=== PATIENT | male | born 1950 | race Caucasian/White ===

== ENCOUNTER → 2017-04-26 | Outpatient (CLI) | payer MEDICARE, OTHER ==
[~2017-04-26] MED LIST: DEXAMETHASONE 10 MG/ML (DECADRON) 1 ML VIAL ONE
[2017-04-26 14:35] VITALS: BP 144/77
[2017-04-26 15:02] VITALS: BP 157/88
--- NOTE | 2017-05-01 12:20 | OPERATIVE REPORT ---
DATE OF SERVICE: 04/26/2017 PROCEDURE: Fluoroscopic guided cervical epidural steroid injection. DESCRIPTION OF PROCEDURE: After obtaining informed consent from the patient, the patient's chart was then reviewed. The patient was then brought to the procedure room, placed in prone position. Timeout was performed. The back was prepped with anesthetic solution and under fluoroscopic guidance, the patient's C7-T1 area was then identified. The area over the right pedicle were identified over T1. Using a 3-1/2 spinal needle then area of skin over the pedicle was anesthetized down to the pedicle and then advanced up to the interspinous space between C7 and T1. This needle was then withdrawn anesthetizing the area again. The Touhy was then directed under fluoroscopy down following the same tract. Loss of resistance syringe was placed and under fluoro guidance epidural space was identified. Syringe was replaced with syringe containing radiopaque dye confirmation of epidural access was obtained with the dye under fluoroscopy after negative aspiration. The syringe was then replaced with a syringe containing 120 mg dexamethasone. This was then injected observing washout under fluoroscopy. Then, Touhy was then flushed with approximately 0.5 mL of this normal saline solution from the loss of resistance syringe. Bandages were applied to all areas and the patient tolerated the procedure well and was taken to the recovery in stable condition. COMPLICATIONS: None. Job ID: [id number] DocumentID: [id number] Dictated Date: 04/30/2017 11:03:16 Ad Copy Writer Date: 04/30/2017 13:33:07 Dictated By: LONG BREWER DO
== END ==
LOC: CARD 14:07
PROVIDERS: ATTEND Pain Medicine Interventional Pain Medicine
DX: M54.12 Radiculopathy, cervical region (principal); M48.02 Spinal stenosis, cervical region; M79.1 Myalgia
CPT/HCPCS: 62321